=== PATIENT | male | born 1965 | race Caucasian/White ===

== ENCOUNTER → 2023-07-14 08:25 | Outpatient (CLI) | payer OTHER, SELFPAY ==
--- NOTE | 2023-07-14 08:29 | DI.RAD.S_ITS ---
PROCEDURE: XR KNEE LT 3V INDICATIONS: left medial knee pain after twisting injury TECHNIQUE: 3 views of the knee were acquired. COMPARISON: None. FINDINGS: Bones: No fractures or dislocations. Normal alignment. Joint spaces are maintained. No suspicious bony lesions. Soft tissues: No joint effusion. No suspicious soft tissue calcifications. No soft tissue swelling or radiopaque foreign body. IMPRESSION: 1. No acute osseous abnormality. 2. Normal alignment. Dictated by: Hu Mcguire M.D. on 07/14/2023 at 8:45 Approved by: Hu Mcguire M.D. on 07/14/2023 at 8:48
== END ==
PROVIDERS: Referring Provider Physician Assistant; Visit Provider Physician Assistant
DX: M25.562 Pain in left knee (principal)
CPT/HCPCS: 73562

== ENCOUNTER → 2023-08-22 14:26 | Outpatient (CLI) | payer OTHER, SELFPAY ==
--- NOTE | 2023-08-22 | DI.MRI.S_ITS ---
PROCEDURE: MR KNEE LT WO CON INDICATIONS: Pain in left knee TECHNIQUE: Noncontrast sagittal PD fast spin echo and T2 fast spin echo with fat saturation, sagittal 3-D FLASH with fat saturation; coronal T1 spin echo and PD fast spin echo with fat saturation, and axial PD fast spin echo with fat saturation through the knee. COMPARISON: None. FINDINGS: Image quality: Excellent. Menisci: Complex tear involving body and posterior horn of medial meniscus is seen extending to both superior and inferior articulating surfaces. The lateral meniscus is intact. The meniscal root ligaments appear intact. Cruciate ligaments: The anterior cruciate ligament is significantly thickened with intrasubstance T2 hyperintense signal. The PCL is intact. Medial structures: The medial collateral ligament appears thickened with intrasubstance T2 hyperintense signal and surrounding soft tissue edema near its femoral insertion. Visualized portions of the pes anserinus tendons appear normal. No abnormal bursal fluid. Lateral structures: The lateral collateral ligament, long and short heads of the biceps femoris tendon appear intact. The popliteus tendon appears normal. Iliotibial band appears normal. Anterior structures: The quadriceps and patellar tendons appear intact. Patellar alignment is normal. No femoral trochlear dysplasia or ventral trochlear prominence. No edema in the infrapatellar fat pad. Bones and cartilage: No bone marrow contusions or fractures. Mild tricompartmental osteoarthritis and low-grade chondromalacia is seen more notably in medial femoral tibial compartment. Joint space: There is small knee joint fluid. No Nuno's cyst. Normal appearing synovial plicae are incidentally noted. IMPRESSION: 1. Complex tear involving body and posterior horn of medial meniscus extending to both superior and inferior articulating surfaces. The lateral meniscus is intact. 2. Sprain/low-grade partial-thickness tear involving anterior cruciate ligament. No ACL rupture. The PCL is intact. 3. Low to moderate grade MCL sprain/partial-thickness tear. 4. 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 No fracture or dislocation. Small joint effusion, no gross loose bodies. Dictated by: Figueroa Duran M.D. on 08/22/2023 at 18:06 Approved by: Figueroa Duran M.D. on 08/22/2023 at 18:09
== END ==
PROVIDERS: PCP Registered Nurse Diabetes Educator; Referring Provider Orthopaedic Surgery Adult Reconstructive Orthopaedic Surgery; Visit Provider Orthopaedic Surgery Adult Reconstructive Orthopaedic Surgery
DX: S83.232A Complex tear of medial meniscus, current injury, left knee, initial encounter (principal); S83.512A Sprain of anterior cruciate ligament of left knee, initial encounter; S83.412A Sprain of medial collateral ligament of left knee, initial encounter; M17.12 Unilateral primary osteoarthritis, left knee; M25.462 Effusion, left knee; M94.262 Chondromalacia, left knee; M25.562 Pain in left knee
CPT/HCPCS: 73721

== ENCOUNTER → 2024-02-20 15:29 | Outpatient (CLI) | payer OTHER, SELFPAY ==
--- NOTE | 2024-02-20 15:32 | DI.RAD.S_ITS ---
PROCEDURE: XR SHOULDER LT MIN 2V INDICATIONS: eval L shoulder pain x 1 year TECHNIQUE: 3 views of the shoulder were acquired. COMPARISON: None. FINDINGS: Bones: No fractures or dislocations. Moderate acromioclavicular joint degeneration. No suspicious bony lesions. Visualized ribs appear intact. Soft tissues: No suspicious soft tissue calcifications. IMPRESSION: No acute osseous abnormalities. Moderate degenerative changes of the acromioclavicular joint. Dictated by: Kevan Rosa M.D. on 02/20/2024 at 16:22 Approved by: Kevan Rosa M.D. on 02/20/2024 at 16:24
== END ==
PROVIDERS: PCP Registered Nurse Diabetes Educator; Referring Provider Registered Nurse Diabetes Educator; Visit Provider Registered Nurse Diabetes Educator
DX: M19.012 Primary osteoarthritis, left shoulder (principal); M25.512 Pain in left shoulder; G89.29 Other chronic pain
CPT/HCPCS: 73030

== ENCOUNTER → 2024-04-08 13:08 | Outpatient (CLI) | payer OTHER, SELFPAY ==
--- NOTE | 2024-04-08 13:10 | DI.RAD.S_ITS ---
PROCEDURE: FL SHOULDER INJECTION MR/CT LT INDICATIONS: Pain in left shoulder COMPARISON: None. TECHNIQUE: The indications, alternatives, benefits, risks, and complications of the procedure were explained to the patient. Written informed consent was obtained and placed in the chart. The shoulder was examined fluoroscopically and a site for needle placement chosen for entry into the glenohumeral joint from an anterior approach. The skin was prepped and draped in a sterile fashion, and 1% lidocaine infiltrated from skin down to joint capsule. A spinal needle was inserted into the glenohumeral joint, and a small amount of iodinated contrast media injected to confirm intra-articular placement of the needle tip. This was followed by approximately 12 mL dilute solution of a gadolinium containing MR contrast agent. The needle was removed and a dressing was applied. The patient was given postprocedural instructions and sent to the MR suite for MR imaging. FINDINGS: A single fluoroscopic spot image demonstrates intra-articular location of injected iodinated contrast. IMPRESSION: Successful fluoroscopically guided administration of dilute Gadolinium solution into the shoulder joint for MR arthrogram. Dictated by: Umang Veliz M.D. on 04/08/2024 at 16:09 Approved by: Umang Veliz M.D. on 04/08/2024 at 16:09
--- NOTE | 2024-04-08 13:10 | DI.MRI.S_ITS ---
PROCEDURE: MR SHOULDER LT W CON INDICATIONS: Pain in left shoulder TECHNIQUE: After the administration of 12 mL of dilute intra-articular Gadolinium contrast, oblique coronal T1 and T2 spin echo with fat saturation, oblique sagittal T1 spin echo with and without fat saturation, oblique sagittal T2 fast spin echo with fat saturation, axial T1 spin echo with fat saturation through the shoulder. COMPARISON: None. FINDINGS: Image quality: Excellent. Rotator cuff: There is high-grade articular surface partial-thickness tear involving anterior to mid fibers of distal supraspinatus at its insertion on the humeral head with up to 1.8 cm medial retraction of torn tendon fibers and contrast filled gap measures 1.4 cm in AP dimension. Moderate grade articular surface partial-thickness tear throughout rest of the distal supraspinatus and infraspinatus at their insertions on the humeral head is seen extending to musculotendinous junction. Low-grade partial-thickness tear involving superior fibers of distal subscapularis is also noted. No full-thickness rotator cuff tendon rupture. No significant rotator cuff muscle atrophy on sagittal images. Bones and bursae: No bone marrow contusions or fractures. Moderate acromioclavicular joint osteoarthritic changes are seen with joint space narrowing and downward osteophyte formation depressing the musculotendinous junction of supraspinatus. Type 1 acromion, without an os acromiale. Mild to moderate glenohumeral joint osteoarthritic changes also noted with joint space narrowing and subchondral sclerosis. Slight superior migration of humeral head in relation to glenoid is also seen. Capsule and soft tissues: There is subtle signal abnormality and contrast extension in superior anterior labrum suggestive of subtle superior anterior labral tear. The glenohumeral ligaments appear intact. Tendinosis and low to moderate grade partial-thickness tear involving proximal intra-articular portion of long head of biceps is seen near its proximal insertion. The rotator interval appears normal, without fibrosis. The coracohumeral ligament is of normal thickness. No intra-articular bodies. IMPRESSION: 1. High-grade articular surface partial-thickness tear involving anterior to mid fibers of distal supraspinatus at its insertion on the humeral head with up to 1.8 cm medial retraction of torn tendon fibers and contrast filled gap measures 1.4 cm in AP dimension. Moderate grade articular surface partial-thickness tear involving rest of the supraspinatus and infraspinatus extending to musculotendinous junction. Low-grade partial-thickness tear involving superior fibers of distal subscapularis. No significant rotator cuff muscle atrophy. 2. Moderate acromioclavicular joint osteoarthritis. [id number] glenohumeral joint osteoarthritis. No acute fracture or dislocation. No loose bodies. 3. Suggestion of subtle superior anterior right shoulder labral tear with contour irregularity and contrast extension. 4. Low to moderate grade partial-thickness tear involving proximal intra-articular portion of long head of biceps. Dictated by: Figueroa Duran M.D. on 04/08/2024 at 15:57 Approved by: Figueroa Duran M.D. on 04/08/2024 at 16:02
[2024-04-08] MEDS: LIDOCAINE 1% 20 ML INJ (13:35)
[2024-04-08] MEDS: SODIUM CHLORIDE 0.9 % 20 ML VIAL IV (13:35)
== END ==
LOC: RAD 13:08
PROVIDERS: PCP Registered Nurse Diabetes Educator; Referring Provider Registered Nurse Diabetes Educator; Visit Provider Registered Nurse Diabetes Educator
DX: M75.112 Incomplete rotator cuff tear or rupture of left shoulder, not specified as traumatic (principal); M19.012 Primary osteoarthritis, left shoulder; S46.112A Strain of muscle, fascia and tendon of long head of biceps, left arm, initial encounter; M25.512 Pain in left shoulder; G89.29 Other chronic pain
CPT/HCPCS: 23350; 73040; 73222; A9579; Q9967